=== PATIENT | female | born 1985 | race African-American/Black ===

== ENCOUNTER 2017-09-23 09:24 | Inpatient (IN) | payer OTHER ==
[2017-09-23] MEDS ORDERED: TUBERCULIN PPD 5 TU/0.1ML SYRINGE (IN PATIENT USE ONLY) ID ONE (10:00)
[2017-09-23] MEDS ORDERED: PROMETHAZINE HCL 25 MG/1 ML VIAL IVPUSH ONE (10:01)
[2017-09-23] MEDS ORDERED: BUTORPHANOL TARTRATE 1 MG/ML VIAL IVPB ONE (10:01)
[2017-09-23] MEDS ORDERED: OXYTOCIN 15 UNITS/ LR 250 ML 15 UNIT/250 ML INFUS.BAG IVPB SCH (10:15)
[2017-09-23] MEDS ORDERED: DEXTROSE 5%-NORMAL SALINE 1,000 ML IV SCH (10:15)
--- NOTE | 2017-09-23 10:25 | HP ---
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 No: Ectopic ...: 8 ...Para: 3 Additional OB History: h/o VTOp X 4 Heme/Onc: No: Anemia Infectious Disease: No: HIV, MRSA, STD's Psych: No: Bipolar, Depression Endocrine: No: Diabetes Mellitus - Past Surgical History Hx Myomectomy: No Hx Transabdominal Cerclage: No Additional Surgical History: "Brazillian butt lift" - Smoking History Smoking history: Never smoked Have you smoked in the past 12 months: No - Alcohol/Substance Use Hx Alcohol Use: Yes (PT STATED SHE STOPPED 07/2014) History of Substance Use: reports: Marijuana - Social History Usual Living Arrangement: Yes: With Spouse History of Recent Travel: No Home Medications - Allergies Allergies/Adverse Reactions: Allergies Allergy/AdvReac Type Severity Reaction Status Date / Time No Known Allergies Allergy Verified 09/23/17 09:50 - Home Medications Home Medications: Ambulatory Orders Vitamins (Sjr) - 1 tab PO DAILY #1 tablet 02/20/15 Review of Systems - Review of Systems Constitutional: reports: No Symptoms Eyes: reports: No Symptoms HENT: reports: No Symptoms Neck: reports: No Symptoms Cardiovascular: reports: No Symptoms Respiratory: reports: No Symptoms Gastrointestinal: reports: No Symptoms Genitourinary: reports: No Symptoms Breasts: reports: No Symptoms Reported Musculoskeletal: reports: No Symptoms Integumentary: reports: No Symptoms Neurological: reports: No Symptoms Endocrine: reports: No Symptoms Hematology/Lymphatic: reports: No Symptoms Psychiatric: reports: No Symptoms Physical Exam - Maternity Constitutional: Yes: Well Nourished, No Distress, Calm Eyes: Yes: Conjunctiva Clear, EOM Intact HENT: Yes: Atraumatic, Normocephalic Neck: Yes: Supple, Trachea Midline Cardiovascular: Yes: Regular Rate and Rhythm Lungs: Clear to auscultation - Abdominal Exam/OB Fundal Height: 39 Number of Fetuses: Single Presentation: Vertex Contractions: No Monitor Mode: External Heart Rate (range): 150 Category: I Accelerations: Uniform Decelerations: None - Vaginal Exam/OB Vaginal Bleediing: No Dilatation (cm): 3 Effacement (%): 50 Amniotic Membrane Status: Intact Presentation: Vertex/Position Station: -3 - Physical Exam Psychiatric: Yes: Alert, Oriented Hemorrhage Risk Assessment - Risk Factors Medium Risk Factors: Yes: None High Risk Factors: Yes: None Risk Score: 1 Risk Level: Medium Risk Problem List - Problems (1) Elective induction of labor planned Code(s): GAO3646 - (2) Term Code(s): Z34.80 - ENCOUNTER FOR SUPRVSN OF NORMAL , UNSP TRIMESTER Assessment/Plan 32 y/o with SIUP at 40+ weeks gestation for IOL - AFVSS - FTHS cat 1 - for IOL, cervix ripe, to start pitocin - GBS negative
[2017-09-23 10:30] VITALS: BMI 36.6
[2017-09-23 11:16] LABS: BASOPHIL 0.5 % (0-2.0); EOSINOPHIL 0.6 % (0-4.5); MCH 31.5 pg (25.7-33.7); MCHC 33.7 g/dl (32.0-36.0); MEAN CELL VOLUME 93.3 fl (80-96); MEAN PLT VOLUME 11.4 fl (7.5-11.1); NEUTROPHILS 74.7 % (42.8-82.8); PLATELET COUNT 159 K/MM3 (134-434); RDW 13.7 % (11.6-15.6); WHITE BLOOD COUNT 8.4 K/mm3 (4.0-10.0)
[2017-09-23 11:27] LABS: INR 0.95 (0.82-1.09); PROTHROMBIN TIME (PATIENT) 10.7 SEC (9.98-11.88)
[2017-09-23 11:30] LABS: ACTIVATED PTT 25.2 SECONDS (26.9-34.4)
[2017-09-23 11:46] LABS: ANION GAP 9 (8-16); CALCIUM 8.2 mg/dL (8.5-10.1); CO2 22 mmol/L (21-32); CREATININE 0.7 mg/dL (0.55-1.02); GLUCOSE,RANDOM 111 mg/dL (74-106)
[2017-09-23 12:33] LABS: HIV 1 & 2 AB NEGATIVE; HIV 1 AGp24 NEGATIVE
[2017-09-23] MEDS ORDERED: LACTATED RINGERS SOLUTION 1,000 ML/1,000 ML INFUS.BAG IV SCH (14:30)
--- NOTE | 2017-09-23 16:20 | PN ---
Ante-Partal Exam - Subjective Subjective: Pt tolerating contractions. Vital Signs: Vital Signs Temperature 97.4 F L 09/23/17 15:34 Pulse Rate 90 09/23/17 16:00 Respiratory Rate 20 09/23/17 16:00 Blood Pressure 124/75 09/23/17 16:00 O2 Sat by Pulse Oximetry (%) Bleeding: No Headache: No Visual changes: No Right upper quadrant pain: No Pain (scale 1-10): 4 - Contractions Contractions: Yes Regularity: Regular Intensity: Mild/Mod Monitor Mode: External - Exam during Labor Heart Rate: 140 Variability: Moderate Category: I Monitor Accelerations: Present Monitor Decelerations: None Exam: Vaginal Dilatation (cm): 4.5 Effacement (%): 80 Amniotic Membrane Status: Ruptured (AROM for light meconium stained fluid) Amniotic Fluid: Meconium Stained Meconium Staining: Light Presentation: Vertex Station: -2 - Intrapartum Hemorrhage Risk High Risk Factors: None Risk Score: 0 Risk Level: Low Risk - Assessment/Plan Assessment/Plan: 32 y/o with SIUP at 40.5 weeks, IOL - FHTS cat 1 - IOL, on pitocin, now AROM for light meconium stained fluid, continue active management, epidural/IV analgesia PRN - GBS negative
[2017-09-23 17:11] LABS: URINE MARIJUANA THC NEGATIVE ng/ml (CUTOFF=50)
[2017-09-23] MEDS ORDERED: ELECTROLYTE-148 SOLN 1,000 ML IV SCH (19:00)
[2017-09-23] MEDS ORDERED: FENTANYL/BUPIVACAINE/NS/PF - PCEA - 50 ML DISP.SYRIN EP SCH (19:45)
[2017-09-23] MEDS ORDERED: WITCH HAZEL 50% (TUCKS) 40 PAD/JAR PAD TP PRN (21:50)
[2017-09-23] MEDS ORDERED: BISACODYL 10 MG SUPP.RECT RC PRN (21:50)
[2017-09-23] MEDS ORDERED: METHYLERGONOVINE MALEATE 0.2 MG/1 ML AMP IM PRN (21:50)
[2017-09-23] MEDS ORDERED: BENZOCAINE 20% 57 GM BOTTLE TP PRN (21:50)
[2017-09-23] MEDS ORDERED: BENZOCAINE 28 GM HEMORRHOIDAL OINTMENT TP PRN (21:50)
--- NOTE | 2017-09-23 21:54 | PN ---
Delivery - Delivery Vaginal Delivery: No Problems Type of Anesthesia: Epidural Episiotomy/Laceration: None EBL (cc): 300 Delivery, Single - Stages of Labor Date of Delivery: 09/23/17 Time of Delivery: 21:38 Date Placenta Delivered: 09/23/17 Time Placenta Delivered: 21:42 Placenta: Yes: Manual Removal - Condition of Rn Diabetes/Driver Guard Present: No Infant Gender: Female Position: Left, OA - 1 Minute Total Score: 9 5 Minutes Total Score: 9 - Feeding Plan Initial Plan: Exclusive throughout hospitalization Remarks - Remarks Remarks: Uncomplicated of baby girl from AJAY position anterior shoulder (right) delivered along with posterior along with remainder of cord clamped and cut baby taken to warmer to be assessed by nursery staff Apgars 9/9 placenta manually extracted- 3VC and in tact EBL 300cc no laceration noted sponge count correct mom stable baby to well baby nursery
[2017-09-23] MEDS ORDERED: OXYTOCIN 20 UNITS in 0.9% NS 20 UNIT/1,000 ML INFUS.BAG IV SCH (22:00)
[2017-09-24] MEDS: FERROUS SO4 325 MG TABLET (FP) PO SCH ×3 (07:29→17:55)
--- NOTE | 2017-09-24 07:29 | PN ---
Post Progress Note - Subjective Subjective: Pt seen/evaluated and doing well - no complaints. Type of Delivery: Vital Signs: Vital Signs Temperature 98.8 F 09/24/17 04:28 Pulse Rate 64 09/24/17 04:28 Respiratory Rate 20 09/24/17 04:28 Blood Pressure 114/68 09/24/17 04:28 O2 Sat by Pulse Oximetry (%) 97 09/23/17 23:30 Uterus: Yes: Fundus Firm, Fundus below umbilicus Abdomen/GI: Yes: Passing flatus, Tolerating PO. No: Tender Lochia: Yes: Rubra Lochia, amount: Small Extremities: Yes: Calves non-tender. No: Edema Perineum: Yes: Intact Activity: Ambulating - Labs Labs: CBC WBC 8.4 K/mm3 (4.0-10.0) D 09/23/17 10:19 RBC 3.74 M/mm3 (3.60-5.2) D 09/23/17 10:19 Hgb 11.8 GM/dL (10.7-15.3) D 09/23/17 10:19 Hct 34.9 % (32.4-45.2) D 09/23/17 10:19 MCV 93.3 fl (80-96) 09/23/17 10:19 MCH 31.5 pg (25.7-33.7) 09/23/17 10:19 MCHC 33.7 g/dl (32.0-36.0) 09/23/17 10:19 RDW 13.7 % (11.6-15.6) 09/23/17 10:19 Plt Count 159 K/MM3 (134-434) 09/23/17 10:19 MPV 11.4 fl (7.5-11.1) H 09/23/17 10:19 Neutrophils % 74.7 % (42.8-82.8) 09/23/17 10:19 Lymphocytes % 19.9 % (8-40) 09/23/17 10:19 Monocytes % 4.3 % (3.8-10.2) 09/23/17 10:19 Eosinophils % 0.6 % (0-4.5) 09/23/17 10:19 Basophils % 0.5 % (0-2.0) 09/23/17 10:19 Problem List - Problems (1) Elective induction of labor planned Code(s): ESG2349 - (2) Term Code(s): Z34.80 - ENCOUNTER FOR SUPRVSN OF NORMAL , UNSP TRIMESTER (3) Normal vaginal delivery Code(s): O80 - ENCOUNTER FOR FULL-TERM UNCOMPLICATED DELIVERY Assessment/Plan 32 y/o PPD#1 s/p normal and doing well - AFVSS - CBC pending this a.m. - regular diet - encourage ambulation - PO pain meds - routine care
[2017-09-24] MEDS: IBUPROFEN 600 MG TABLET (FP) PO PRN ×2 (07:30→16:14)
[2017-09-24] MEDS: ACETAMINOPHEN 325 MG TABLET (FP) PO PRN ×2 (07:30→16:15)
[2017-09-24 07:48] LABS: BASOPHIL 0.2 % (0-2.0); EOSINOPHIL 0.1 % (0-4.5); MCH 31.8 pg (25.7-33.7); MEAN CELL VOLUME 93.5 fl (80-96); MEAN PLT VOLUME 11.1 fl (7.5-11.1); NEUTROPHILS 84.9 % (42.8-82.8); PLATELET COUNT 144 K/MM3 (134-434); RDW 13.9 % (11.6-15.6); WHITE BLOOD COUNT 16.4 K/mm3 (4.0-10.0)
[2017-09-24] MEDS: PRENATAL VITAMINS W/ FOLIC ACID TABLET (FP) PO SCH (10:16)
[2017-09-24] MEDS ORDERED: SENNOSIDES/DOCUSATE COMBO (SENNA PLUS) TABLET (UD) PO PRN (22:00)
[2017-09-25 08:36] VITALS: BP 131/80; PULSE 74; TEMP 98.1
[2017-09-25] MEDS: ACETAMINOPHEN 325 MG TABLET (FP) PO PRN (08:53)
[2017-09-25] MEDS: FERROUS SO4 325 MG TABLET (FP) PO SCH ×2 (08:53→11:57)
[2017-09-25] MEDS: IBUPROFEN 600 MG TABLET (FP) PO PRN (08:54)
[2017-09-25] MEDS: PRENATAL VITAMINS W/ FOLIC ACID TABLET (FP) PO SCH (10:03)
--- NOTE | 2017-09-25 19:44 | DS ---
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: Vital Signs Temperature 98.1 F 09/25/17 08:35 Pulse Rate 74 09/25/17 08:35 Respiratory Rate 20 09/25/17 08:35 Blood Pressure 131/80 09/25/17 08:35 O2 Sat by Pulse Oximetry (%) 97 09/23/17 23:30 Labs: CBC, BMP 09/24/17 06:20 09/23/17 10:19 Delivery - Delivery Vaginal Delivery: No Problems Type of Anesthesia: Epidural Episiotomy/Laceration: None EBL (cc): 300 Delivery, Single - Stages of Labor Date 1st Stage Initiatied: 09/23/17 Time 1st Stage Initiated: 16:00 Date 2nd Stage Initiated: 09/23/17 Time 2nd Stage Initiated: 21:10 Date of Delivery: 09/23/17 Time of Delivery: 21:38 Time Placenta Delivered: 21:42 Placenta: Yes: Manual Removal - Condition of Infant 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 You may walk unlimited amounts and climb stairs. You may resume driving the car when you feel safe and comfortable behind the wheel. No sexual activity as instructed for 6 weeks. You may shower daily --- please no soaking in tubs/baths/pools until cleared by your doctor. Diet There are no dietary restrictions. Eat healthy, high-fiber foods. Drink 6 to 8 glasses of liquid each day. This will assist in keeping your bowels regular. Pain management You may take Tylenol or Ibuprofen (for example, Motrin, Advil etc.) as needed for pain. Call MD for any of the following: Severe pain not relieved by medication Fever of 101 or higher Excessive bleeding or drainage on dressing Inability to urinate return to office in 4-6 weeks. call for appointment. Referrals: Elvia Lang DO [Staff Physician] - 1 Month (4-6 weeks after discharge) Disposition: HOME - Home Medications Comprehensive Discharge Medication List: Ambulatory Orders Vitamins (Sjr) - 1 tab PO DAILY #1 tablet 02/20/15 Ibuprofen [Motrin -] 600 mg PO QID PRN #28 tablet 09/23/17
== END 2017-09-25 12:20 | disposition home or self-care (01) | DRG 560 ==
LOC: JLDR 09:24 → J3W 09-24 00:13
PROVIDERS: ADMIT Obstetrics & Gynecology; ATTEND Obstetrics & Gynecology
PROC: 10907ZC Drainage of Amniotic Fluid, Therapeutic from Products of Conception, Via Natural or Artificial Opening (ICD-10-PCS; principal; 2017-09-23)
PROC: 10E0XZZ Delivery of Products of Conception, External Approach (ICD-10-PCS; 2017-09-23)
DX: O48.0 Post-term pregnancy (principal); O77.0 Labor and delivery complicated by meconium in amniotic fluid; E66.8 Other obesity; Z68.36 Body mass index [BMI] 36.0-36.9, adult; Z3A.40 40 weeks gestation of pregnancy; Z37.0 Single live birth
CPT/HCPCS: 36415; 59409; 80048; 80307; 85025; 85610; 85730; 86593; 86850; 86900; 86901; 87389

== ENCOUNTER 2018-04-11 05:21 | Day surgery (SDC) | payer OTHER ==
[2018-04-10 11:40] VITALS: BMI 37.1
[2018-04-11] MEDS ORDERED: ACETAMINOPHEN 325 MG TABLET (FP) PO PRN (12:02)
--- NOTE | 2018-04-11 12:02 | HP ---
History & Physical Update - History History: No Change - Physical Physical: No Change - Assessment Assessment: No Change - Plan Plan: No Change (No change, agree with H&P from 04/10 - plan for laparoscopic bilateral salpingectomy)
[2018-04-11] MEDS ORDERED: LACTATED RINGERS SOLUTION 1,000 ML IV SCH ×2 (12:15→14:15)
[2018-04-11] MEDS ORDERED: BUPIVACAINE HCL/PF 0.5% (5MG/ML) 10 ML VIAL ONE (12:49)
[2018-04-11] MEDS ORDERED: MIDAZOLAM HCL 2 MG/2 ML SINGLE DOSE VIAL ONE (13:02)
[2018-04-11] MEDS ORDERED: PROPOFOL 20 ML ONE ×2 (13:03→13:25)
[2018-04-11] MEDS ORDERED: ROCURONIUM BROMIDE 50 MG/5 ML VIAL ONE (13:03)
--- NOTE | 2018-04-11 13:11 | HP ---
Admitting History and Physical - Admission Chief Complaint: Here for tubal sterilization. History of Present Illness: 32 y/o female with LMP 04/06/2018 presents for laparoscopic bilateral salpingectomy for voluntary sterilization . Seen in office yesterday (04/10/18) and consents were signed at that time. 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 No: HIV, MRSA Psych: No: Anxiety, Bipolar, Depression Endocrine: No: Diabetes Mellitus, Hyperthyroidism - Past Surgical History Past Surgical History: Yes: None - Smoking History Smoking history: Former smoker Have you smoked in the past 12 months: No Aproximately how many cigarettes per day: 2 If you are a former smoker, when did you quit?: 2yrs - Alcohol/Substance Use Hx Alcohol Use: Yes (occas) History of Substance Use: reports: Marijuana - Social History Usual Living Arrangement: Yes: With Spouse ADL: Independent History of Recent Travel: No Home Medications - Allergies Allergies/Adverse Reactions: Allergies Allergy/AdvReac Type Severity Reaction Status Date / Time No Known Allergies Allergy Verified 04/10/18 11:40 - Home Medications Home Medications: Ambulatory Orders Vitamins (Sjr) - 1 tab PO DAILY #1 tablet 02/20/15 Ibuprofen 600 mg PO PRN PRN 04/10/18 Melatonin 1 mg PO PRN PRN 04/10/18 Physical Examination Vital Signs: Vital Signs Temperature 98.2 F 04/11/18 12:05 Pulse Rate 91 H 04/11/18 12:05 Respiratory Rate 16 04/11/18 12:05 Blood Pressure 156/88 04/11/18 12:05 O2 Sat by Pulse Oximetry (%) 98 04/11/18 12:05 Constitutional: Yes: Well Nourished, No Distress, Calm Eyes: Yes: Conjunctiva Clear, EOM Intact Neck: Yes: Supple, Trachea Midline Cardiovascular: Yes: Regular Rate and Rhythm Respiratory: Yes: WNL Gastrointestinal: Yes: Soft. No: Tenderness Renal/: Yes: Other (vulvar sebaceous cyst) Musculoskeletal: Yes: WNL Extremities: Yes: WNL Neurological: Yes: Alert, Oriented Psychiatric: Yes: Alert, Oriented Problem List - Problems (1) Admission for sterilization Code(s): Z30.2 - ENCOUNTER FOR STERILIZATION (2) Multiparity Code(s): Z64.1 - PROBLEMS RELATED TO MULTIPARITY Assessment/Plan Pt here for laparoscopic bilateral salpingectomy. Risks of procedure (including but not limited to bleeding ,infection, damage to surrounding structures/tissues) discussed at length, pt aware. Benefits and alternatives also discussed with patient at length. Consents for procedure signed again today. SCDs NPO Anesthesia aware and ready
[2018-04-11] MEDS ORDERED: NEOSTIGMINE METHYLSULFATE 0.5 MG/ML - 10 ML MDV ONE (13:52)
[2018-04-11] MEDS ORDERED: BUPIVACAINE HCL/PF (5 MG/ML) 30 ML VIAL IJ ONE (13:52)
[2018-04-11] MEDS ORDERED: IBUPROFEN 800 MG/8 ML IJ IVPB ONE (14:00)
[2018-04-11] MEDS ORDERED: PROMETHAZINE HCL 25 MG/1 ML VIAL IVPB PRN (14:12)
[2018-04-11] MEDS ORDERED: oxyCODONE HCL 5 MG TABLET PO PRN (14:12)
[2018-04-11] MEDS ORDERED: ONDANSETRON 4 MG/2 ML VIAL IVPUSH PRN (14:12)
--- NOTE | 2018-04-11 16:21 | SURG ---
Surgery Fine Dining Server Note Fine Dining Server: Carlos Fisher PA-C Date of Service: 04/11/18 Diagnosis: Voluntary sterilization Procedure: laparoscopic bilateral salpingectomy and right paratubal cystectomy I was present for the entirety of the operative procedure. For further detail, please refer to operative report. Visit type - Case Type Case Type: Scheduled - New patient This patient is new to me today: Yes Date on this admission: 04/11/18
[2018-04-11 16:29] VITALS: TEMP 98.2
[2018-04-11 18:34] VITALS: BP 128/64; PULSE 81
--- NOTE | 2018-04-11 21:02 | OP ---
Operative Note - Note: Operative Date: 04/11/18 Pre-Operative Diagnosis: desire for permanent sterilization Operation: laparoscopic b/l salpingectomy, right paratubal cyst removal Findings: normal b/l tubes and ovaries Post-Operative Diagnosis: Same as Pre-op Surgeon: Elvia Lang Special Warfare Boat Operator: Carlos Fisher Anesthesiologist/BELT CLEANER: Belkis Maria MD Anesthesia: General Specimens Removed: bilateral fallopian tubes, right paratubal cyst Estimated Blood Loss (mls): 5 Operative Report Dictated: Yes
--- NOTE | 2018-04-11 23:23 | OP ---
DATE OF OPERATION: 04/11/2018 PROCEDURE: salpingectomy and right paratubal cyst removal. SURGEON: Elvia Lang M.D. FORM BUILDER HELPER: Pamela Flores ANESTHESIA: General anesthesia. ANESTHESIOLOGIST: Belkis Maria M.D. ESTIMATED BLOOD LOSS: 5 mL. COMPLICATIONS: None. SPECIMENS REMOVED: Bilateral fallopian tubes and right paratubal cyst. DISPOSITION: Stable to PACU. BRIEF HISTORY AND PROCEDURE: Patient is a 32-year-old, female who was seen in the office with desire for sterilization procedure. Patient was admitted on April 11, 2018. Consent for a bilateral laparoscopic salpingectomy were signed. Patient was taken back to the operating room where she was given general anesthesia and placed in the dorsal lithotomy position. The patient was prepped and draped in the usual sterile fashion. Willson catheter was placed. A timeout was performed. An umbilical incision was placed in the infraumbilical portion which was 5 mm in size. A Veress needle was placed intra-abdominally, and after the hanging drop test, the abdomen was insufflated with CO2 gas. A trocar was then placed intra-abdominally, and a camera was inserted to confirm intraabdominal placement. Next two bilateral lower quadrant 5-mm ports were placed under direct visualization. The left fallopian tube was identified and elevated and traced down to its fimbriated end and dissected off its attachment to the ovary, mesosalpinx, and uterus using Ligasure device, and removed from the abdominal cavity. Same was repeated with the right fallopian tube. A right paratubal cyst was also noted, which was removed at this time. Both surgical sites were noted to be hemostatic. Specimens were sent to pathology for permanent evaluation, further examination of the intraabdominal contents revealed no other gross abnormalities. All ports were removed from the abdomen. Abdomen was desufflated. The skin was reapproximated using 4-0 Biosyn suture and skin glue, and the patient was awoken from anesthesia in recovery in stable condition to PACU after the procedure. ELVIA LANG DO /[id number]
--- NOTE | 2018-04-13 16:23 | PATH ---
Surgical Pathology Report Patient Name: JD ALCOCER [facility]. Rec. #: [id number] /Age/Gender: 1985 (Age: 32) / F Account: [id number] Location: [facility] SURGICAL Taken: 04/11/2018 Received: 04/12/2018 Reported: 04/13/2018 Physicians: Elvia Lang M.D. Specimen(s) Received A: LEFT FALLOPIAN TUBE B: RIGHT FALLOPIAN TUBE C: PARATUBAL CYST Clinical History Voluntary sterilization Final Diagnosis A. FALLOPIAN TUBE, LEFT, SALPINGECTOMY: FIMBRIATED END AND FULL LUMINAL PORTION OF UNREMARKABLE FALLOPIAN TUBE. B. FALLOPIAN TUBE, RIGHT, SALPINGECTOMY: FIMBRIATED END AND FULL LUMINAL PORTION OF UNREMARKABLE FALLOPIAN TUBE. C. PARATUBAL CYST, EXCISION: PARATUBAL CYST. Electronically Signed Jessica Suarez M.D. Gross Description A. Received in formalin labeled "left fallopian tube," is a 7 cm in length fimbriated fallopian tube. The outer surface is keating-gann. Sectioning reveals an unremarkable lumen. Kiln Hand sections are submitted in 2 cassettes as follows: 1-fimbria; 2-cross sections of fallopian tube. B. Received in formalin labeled "right fallopian tube," is a 8 cm in length fimbriated fallopian tube. The outer surface is keating-gann. Sectioning reveals an unremarkable lumen. Kiln Hand sections are submitted in 2 cassettes as follows: 1-fimbria; 2-cross sections of fallopian tube. C. Received in formalin labeled "paratubal cyst" keating translucent cystic lesion consistent with a paratubal cyst measuring 1 x 0.5 x 0.4 cm in greatest dimension. Entire specimen is submitted in one cassette MLSZ/04/12/2018 zabla/04/12/2018
== END 2018-04-11 18:15 | disposition home or self-care (01) ==
LOC: JASU-SURG 05:21
PROVIDERS: ATTEND Obstetrics & Gynecology
PROC: 0UB54ZX Excision of Right Fallopian Tube, Percutaneous Endoscopic Approach, Diagnostic (ICD-10-PCS; 2018-04-11)
PROC: 0UB74ZZ Excision of Bilateral Fallopian Tubes, Percutaneous Endoscopic Approach (ICD-10-PCS; principal; 2018-04-11 12:30)
DX: Z30.2 Encounter for sterilization (principal); N83.8 Other noninflammatory disorders of ovary, fallopian tube and broad ligament
CPT/HCPCS: 88302-TC; 88304-TC; 94760

== ENCOUNTER 2021-10-18 19:04 | Emergency (ER) | payer OTHER ==
[2021-10-18 19:37] VITALS: BMI 34.5
[2021-10-18 22:56] VITALS: BP 112/73; PULSE 78; TEMP 98.6
== END 2021-10-18 23:05 | disposition home or self-care (01) ==
LOC: JERFT 19:04
PROC: 0U9MXZZ Drainage of Vulva, External Approach (ICD-10-PCS; principal; 2021-10-18)
PROC: 3E03329 Introduction of Other Anti-infective into Peripheral Vein, Percutaneous Approach (ICD-10-PCS; 2021-10-18)
PROC: 3E033NZ Introduction of Analgesics, Hypnotics, Sedatives into Peripheral Vein, Percutaneous Approach (ICD-10-PCS; 2021-10-18)
PROC: 3E0337Z Introduction of Electrolytic and Water Balance Substance into Peripheral Vein, Percutaneous Approach (ICD-10-PCS; 2021-10-18)
DX: N75.1 Abscess of Bartholin's gland (principal)
CPT/HCPCS: 36415; 80053; 85025; 99284-25

== ENCOUNTER 2022-03-21 04:37 | Day surgery (SDC) | payer OTHER ==
[2022-03-16 15:22] VITALS: BMI 35.3
[2022-03-21] MEDS ORDERED: SUCCINYLCHOLINE CHLORIDE 200 MG/10 ML SYRINGE ONE (11:06)
[2022-03-21] MEDS ORDERED: FENTANYL CITRATE/PF 50 MCG/ML VIAL ONE ×8 (11:06→12:59)
[2022-03-21] MEDS ORDERED: PROPOFOL 20 ML ONE ×2 (11:06→11:12)
[2022-03-21] MEDS ORDERED: ROCURONIUM BROMIDE 50 MG/5 ML SYRINGE ONE (11:25)
[2022-03-21] MEDS ORDERED: ceFAZolin SODIUM 1 GM VIAL IVPB ONE (11:37)
[2022-03-21] MEDS ORDERED: BUPIVACAINE HCL/PF 0.5% (5 MG/ML) 30 ML VIAL IJ ONE (11:40)
[2022-03-21] MEDS ORDERED: BUPIVACAINE HCL/PF 0.5% (5MG/ML) 10 ML VIAL ONE (11:44)
[2022-03-21] MEDS ORDERED: GLYCOPYRROLATE 0.2 MG/1 ML VIAL ONE ×2 (11:47)
[2022-03-21] MEDS ORDERED: NEOSTIGMINE METHYLSULFATE 0.5 MG/ML - 10 ML MDV ONE (11:47)
[2022-03-21] MEDS ORDERED: BENZOCAINE 20% 57 GM BOTTLE TP ONE (12:00)
[2022-03-21] MEDS ORDERED: ONDANSETRON 4 MG/2 ML VIAL IVPUSH PRN (12:17)
[2022-03-21] MEDS ORDERED: oxyCODONE HCL 5 MG TABLET PO PRN (12:17)
[2022-03-21] MEDS ORDERED: PROMETHAZINE HCL 25 MG/1 ML VIAL IVPB PRN (12:17)
[2022-03-21] MEDS: FENTANYL CITRATE/PF 50 MCG/ML VIAL IVPUSH PRN ×4 (12:30→12:59)
[2022-03-21] MEDS ORDERED: IBUPROFEN 400 MG TABLET (FP) PO PRN (12:45)
[2022-03-21] MEDS ORDERED: ACETAMINOPHEN 325 MG TABLET (FP) PO PRN (12:45)
[2022-03-21 14:51] VITALS: BP 133/71; PULSE 60; TEMP 98.8
== END 2022-03-21 14:59 | disposition home or self-care (01) ==
LOC: JASU-SURG 04:37
PROVIDERS: ATTEND Obstetrics & Gynecology
PROC: 0UBL0ZZ Excision of Vestibular Gland, Open Approach (ICD-10-PCS; principal; 2022-03-21 10:00)
DX: N75.0 Cyst of Bartholin's gland (principal)
CPT/HCPCS: 81025; 88304-TC; 94760